=== PATIENT | male | born 1985 | race Caucasian/White ===

== ENCOUNTER 2016-05-01 13:11 | Emergency (ER) | payer OTHER ==
[~2016-05-01] VITALS: Ht 188 cm; Wt 100.0 kg
[~2016-05-01 13:11] MED LIST: ASPI325T PO; IBUP-232 PO
[2016-05-01 13:20] VITALS: BP 144/93; PULSE 94; RESP 16; TEMP 98.8; O2SAT 99
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
[2016-05-01] MEDS ORDERED: KETOROLAC TROMETHAMINE 60 MG/2 ML (IM) VIAL IM ONE (13:45)
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
[2016-05-01] MEDS ORDERED: IBUP800T23 PO (15:24)
[2016-05-01] MEDS ORDERED: ROBA500T PO (15:24)
== END 2016-05-01 15:34 | disposition home or self-care (01) ==
LOC: PHEFT 13:11
DX: S39.012A Strain of muscle, fascia and tendon of lower back, initial encounter (principal); M54.2 Cervicalgia; V53.5XXA Driver of pick-up truck or van injured in collision with car, pick-up truck or van in traffic accident, initial encounter; Y92.488 Other paved roadways as the place of occurrence of the external cause
CPT/HCPCS: 72050; 72110; 99284

== ENCOUNTER 2016-11-29 10:07 | Observation (INO) | payer OTHER ==
[~2016-11-29] VITALS: Ht 185.4 cm; Wt 107.0 kg
[~2016-11-29 10:07] MED LIST changes: -ASPI325T PO; -IBUP-232 PO; +IBUP800T23 PO; +ROBA500T PO
[2016-11-29 10:10] VITALS: BP 132/82; PULSE 97; RESP 16; TEMP 98.5; O2SAT 98
[2016-11-29] MEDS ORDERED: SODIUM CHLORIDE 0.9% FLUSH 10 ML FLUSH IVF PRN (10:15)
[2016-11-29 10:32] VITALS: BP 174/86; PULSE 91; RESP 19; O2SAT 96
[2016-11-29 10:36] LABS: AUTOMATED NEUTROPHIL # 5.4 TH/MM3 (1.8-7.7); BASOPHIL # 0.1 TH/MM3 (0-0.2); BASOPHIL % 0.7 % (0.0-2.0); EOSINOPHIL # 0.5 TH/MM3 (0-0.4); EOSINOPHIL % 6.1 % (0.0-4.0); HEMATOCRIT 44.4 % (39.0-51.0); HEMO FLAGS DIFF FINAL; LYMPH % 23.1 % (9.0-44.0); MEAN CELL VOLUME 92.7 FL (80.0-100.0); MEAN CORPUSCULAR HEMOGLOBIN 31.8 PG (27.0-34.0); MEAN CORPUSCULAR HGB CONC 34.3 % (32.0-36.0); MONO % 7.5 % (0.0-8.0); NEUT % 62.6 % (16.0-70.0); PLATELET COUNT 274 TH/MM3 (150-450); RED BLOOD COUNT 4.79 MIL/MM3 (4.50-5.90); RED CELL DISTRIBUTION WIDTH 13.1 % (11.6-17.2); WHITE BLOOD COUNT 8.6 TH/MM3 (4.0-11.0)
[2016-11-29 10:49] LABS: APTT (PATIENT) 24.7 SEC (24.3-30.1); INTERNATIONAL NORMALIZED RATIO 0.9 RATIO
[2016-11-29 10:59] LABS: ALKALINE PHOSPHATASE 64 U/L (45-117); ALT (GPT) 75 U/L (12-78); ANION GAP 5 MEQ/L (5-15); AST (GOT) 47 U/L (15-37); BICARBONATE 26.5 MEQ/L (21.0-32.0); BLOOD UREA NITROGEN 14 MG/DL (7-18); CHLORIDE 106 MEQ/L (98-107); CREATINE KINASE 924 U/L (39-308); GLOMERULAR FILTRATION RATE 60 ML/MIN (>89); SODIUM (NA) 137 MEQ/L (136-145); TOTAL BILIRUBIN ADULT 0.5 MG/DL (0.2-1.0)
[2016-11-29 11:00] LABS: POTASSIUM 4.2 MEQ/L (3.5-5.1)
[2016-11-29 11:14] LABS: CKMB 3.7 NG/ML (0.5-3.6)
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
[2016-11-29] MEDS ORDERED: SODIUM CHLOR 0.9% 1000 ML INJ 1,000 ML IV ONE (11:30)
[2016-11-29] MEDS ORDERED: ASPIRIN 81 MG CHEW TAB CHEW ONE (11:30)
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
--- NOTE | 2016-11-29 12:35 | RADRPT ---
EXAM DATE/TIME: 11/29/2016 11:33 [facility] COMPARISON: CHEST SINGLE AP, June 08, 2015, 16:20. INDICATIONS : Lt side chest pains into left shoulder. MEDICAL HISTORY : None. SURGICAL HISTORY : None. ENCOUNTER: Initial ACUITY: 3 days PAIN SCORE: 8/10 LOCATION: Left chest FINDINGS: A single view of the chest demonstrates the lungs to be symmetrically aerated without evidence of mas s, infiltrate or effusion. The cardiomediastinal contours are unremarkable. Osseous structures are intact. CONCLUSION: No acute disease. No significant change has occurred. Fernie Hatch MD on November 29, 2016 at 12:34 Board Certified Radiologist. This report was verified electronically.
[2016-11-29] MEDS ORDERED: ACETAMINOPHEN 500 MG CPLT PO PRN (12:45)
[2016-11-29] MEDS ORDERED: NITROGLYCERIN 0.4 MG SL 25 TABS/BTL SL PRN (12:45)
[2016-11-29] MEDS ORDERED: ONDANSETRON HCL 4 MG/2 ML VIAL IV PUSH PRN (12:45)
[2016-11-29 12:50] VITALS: O2SAT 98
[2016-11-29 13:09] VITALS: PULSE 72
[2016-11-29 13:32] VITALS: BP 171/78
[2016-11-29 14:12] LABS: CREATINE KINASE 837 U/L (39-308)
--- NOTE | 2016-11-29 14:16 | EKG ---
Date Performed: 11/29/2016 Time Performed: 10:21:28 PTAGE: 31 years EKG: Sinus rhythm NORMAL ECG Compared to prior tracing no significant change PREVIOUS TRACING : 06/08/2015 16.06 DOCTOR: Pee Woods Interpretating Date/Time 11/29/2016 14:12:09
[2016-11-29 14:25] LABS: CKMB 2.9 NG/ML (0.5-3.6)
--- NOTE | 2016-11-29 14:39 | HHI.HP ---
HPI Primary Care Physician Alfredo Rojas MD Chief Complaint Chest pain History of Present Illness 31-year-old male with history of asthma, hypertension, and chronic low back pain presents to the emergency room for further evaluation of chest pain. Onset Monday while watching television. Location left anterior chest. Characterized as a deep ache. Radiation to left arm. Stating left arm aches. Duration has been constant past 4 days. Associated symptoms include intermittent "cold sweats." Denies associated symptoms of nausea, vomiting, shortness of breath. Does not hurt to take a deep breath. No particular movements or position makes pain better or worse. Denies any injury, trauma, or recent fall. Endorses similar pain in the past. States I have been seen about a year ago for the same thing "and they can't find shit wrong." Reports mother encouraged him to come in emergency room for further evaluation due to family history of cardiovascular disease. Patient is unable to elaborate family history of cardiovascular disease, stating "my mom will know." Question if patient is agreeable for cardiac workup and possible stress testing patient states "I don't give a f what happens because you guys won't find anything anyway." Patient is argumentative during history and physical, especially when explaining 4 days of constant chest pain not cardiac related. Discussed ordering Toradol dose now, he refuses stating "I have studied medical issues, Toradol won't help and this is not costochondritis." Of note, term costochondritis was not used during history and physical exam. Assessment ended prematurely due to patient argumentative, agitated, and angry demeanor. Review of Systems General: No fever, chills, or recent illness change. HEENT: No AVINA CV: Continues to have chest pain as stated above. No palpitations. RESP: No SOB, cough, sputum production, or recent URI. History of asthma GI: No nausea, vomiting, bowel changes, or diarrhea. MS: Chronic low back pain and right shoulder pain. No change in ROM NEURO: No LOC, motor/sensory deficits, no extremity weakness, no numbness or tingling PSYCH: No anxiety, depression SKIN: No rashes, no concerning lesions Past Family Social History Allergies: Coded Allergies: penicillin G (Unverified Allergy, Unknown, 11/29/16) pt's states possible reaction due to mother being allergic to pen Past Medical History Chronic low back pain, hypertension (not taking any medications), asthma, depression, anxiety, right shoulder before meals tear Past Surgical History Right inguinal hernia repair, right knee surgery, appendectomy, tonsillectomy Reported Medications Reported Meds & Active Scripts Active Ginkgo biloba daily Active Ordered Medications Current Medications Medications (Trade) Dose Ordered Sig/Ita Route Start Time Stop Time Status Last Admin (NS Flush) 2 ml UNSCH PRN IVF 11/29/16 10:15 (NS Flush) 2 ml BID IV FLUSH 11/29/16 21:00 (Tylenol) 500 mg Q4H PRN PO 11/29/16 12:45 (Zofran Inj) 4 mg Q6H PRN IV PUSH 11/29/16 12:45 (Nitrostat Sl) 0.4 mg Q5M PRN SL 11/29/16 12:45 (Aspirin) 325 mg DAILY PO 11/30/16 09:00 Social History Known hypertension (cannot verify if he has ever been ordered blood pressure meds-"stating I probably have been"). No known diabetes or hyperlipidemia. Current smoker, smokes one half pack daily. Endorses an active lifestyle, exercises often. . 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 Past cardiac testing None Physical Exam Vital Signs Vital Signs Date Time Temp Pulse Resp B/P (MAP) Pulse Ox O2 Delivery O2 Flow Rate FiO2 11/29/16 13:32 78 17 171/78 (109) 98 11/29/16 12:50 98 21 11/29/16 10:32 87 19 96 Room Air 11/29/16 10:32 91 19 174/86 (115) 96 Room Air 11/29/16 10:32 96 Room Air 11/29/16 10:32 91 19 174/86 (115) 96 Room Air 11/29/16 10:10 98.5 97 16 132/82 (99) 98 Physical Exam GENERAL: Alert WN, WD, NAD, agitated, hostile male HEAD: NC, AT CV: RRR, without murmur, rub, gallop, no JVD, S1-S2 no S3-S4. Chest wall nontender with palpation. RESP: Clear lungs throughout bilateral, no crackles, wheeze, rhonchi, symmetrical chest rise, nonlabored, able to speak in full sentences MS: Normal tone 4 extremities, no obvious deformities, full range of motion NEURO: CN II through CN XII grossly intact PSYCH: A+O 3, angry, agitated, and argumentative, appropriate speech, mood, affect, insight and judgment difficult to discern due to angry behavior SKIN: Normal turgor, normal texture, multiple tattoos Laboratory Laboratory Tests Test 11/29/16 10:27 11/29/16 13:30 White Blood Count 8.6 Red Blood Count 4.79 Hemoglobin 15.2 Hematocrit 44.4 Mean Corpuscular Volume 92.7 Mean Corpuscular Hemoglobin 31.8 Mean Corpuscular Hemoglobin Concent 34.3 Red Cell Distribution Width 13.1 Platelet Count 274 Mean Platelet Volume 7.0 Neutrophils (%) (Auto) 62.6 Lymphocytes (%) (Auto) 23.1 Monocytes (%) (Auto) 7.5 Eosinophils (%) (Auto) 6.1 Basophils (%) (Auto) 0.7 Neutrophils # (Auto) 5.4 Lymphocytes # (Auto) 2.0 Monocytes # (Auto) 0.6 Eosinophils # (Auto) 0.5 Basophils # (Auto) 0.1 CBC Comment DIFF FINAL Differential Comment Prothrombin Time 10.0 Prothromb Time International Ratio 0.9 Activated Partial Thromboplast Time 24.7 Blood Urea Nitrogen 14 Creatinine 1.39 Random Glucose 105 Total Protein 7.1 Albumin 3.8 Calcium Level 8.6 Magnesium Level 2.0 Alkaline Phosphatase 64 Aspartate Amino Transf (AST/SGOT) 47 Alanine Aminotransferase (ALT/SGPT) 75 Total Bilirubin 0.5 Sodium Level 137 Potassium Level 4.2 Chloride Level 106 Carbon Dioxide Level 26.5 Anion Gap 5 Estimat Glomerular Filtration Rate 60 Total Creatine Kinase 924 837 Creatine Kinase MB 3.7 2.9 Creatine Kinase MB % 0.4 0.3 Troponin I LESS THAN 0.02 LESS THAN 0.02 Lipase 243 Result Diagram: 11/29/16 1027 11/29/16 1027 Imaging Last Impressions Chest X-Ray 11/29/16 0000 Signed Impressions: Service Date/Time: Tuesday, November 29, 2016 11:33 - CONCLUSION: No acute disease. No significant change has occurred. Fernie Hatch MD Course EKG Normal sinus rhythm, normal axis, no ST or T-segment changes Caprini VTE Risk Assessment Caprini VTE Risk Assessment: No/Low Risk (score <= 1) Caprini Risk Assessment Model Point Value = 1 Point Value = 2 Point Value = 3 Point Value = 5 Age 41-60 Minor surgery BMI > 25 kg/m2 Swollen legs Varicose veins or History of unexplained or recurrent spontaneous Oral contraceptives or hormone replacement Sepsis (< 1 month) Serious lung disease, including pneumonia (< 1 month) Abnormal pulmonary function Acute myocardial infarction Congestive heart failure (< 1 month) History of inflammatory bowel disease Medical patient at bed rest Age 61-74 Arthroscopic surgery Major open surgery (> 45 min) Laparoscopic surgery (> 45 min) Malignancy Confined to bed (> 72 hours) Immobilizing plaster cast Central venous access Age >= 75 History of VTE Family history of VTE Factor V Leiden Prothrombin [id number] Lupus anticoagulant Anticardiolipin antibodies Elevated serum homocysteine Heparin-induced thrombocytopenia Other congenital or acquired thrombophilia Stroke (< 1 month) Elective arthroplasty Hip, pelvis, or leg fracture Acute spinal cord injury (< 1 month) Prophylaxis Regimen Total Risk Factor Score Risk Level Prophylaxis Regimen 0-1 Low Early ambulation 2 Moderate Order ONE of the following: *Sequential Compression Device (SCD) *Heparin 5000 units SQ BID 3-4 Higher Order ONE of the following medications: *Heparin 5000 units SQ TID *Enoxaparin/Lovenox 40 mg SQ daily (WT < 150 kg, CrCl > 30 mL/min) *Enoxaparin/Lovenox 30 mg SQ daily (WT < 150 kg, CrCl > 10-29 mL/min) *Enoxaparin/Lovenox 30 mg SQ BID (WT < 150 kg, CrCl > 30 mL/min) AND/OR *Sequential Compression Device (SCD) 5 or more Highest Order ONE of the following medications: *Heparin 5000 units SQ TID (Preferred with Epidurals) *Enoxaparin/Lovenox 40 mg SQ daily (WT < 150 kg, CrCl > 30 mL/min) *Enoxaparin/Lovenox 30 mg SQ daily (WT < 150 kg, CrCl > 10-29 mL/min) *Enoxaparin/Lovenox 30 mg SQ BID (WT < 150 kg, CrCl > 30 mL/min) AND *Sequential Compression Device (SCD) Assessment and Plan Assessment and Plan #1 Chest wall pain-admitted to chest pain center Will rule out with 3 sets of EKGs, cardiac enzymes, and monitor on telemetry. Will be seen and evaluated by Dr. Sumi Clement. Discussed chest pain most likely to be musculoskeletal in nature and not cardiac related. Offered Toradol IV, patient refuses " stating Toradol will not work for me." Discussed pharmacokinetics and benefits of NSAIDs for musculoskeletal in length, continues to refuse. At this time patient agrees to stay and be seen by thread spooler. Explained constant 4 days of chest pain, the decision to have further stress testing would be only for his and his mother reassurance, not due to current symptoms. Patient again states "you won't find anything on the stress test anyway." #2 Hypertension-continue to monitor, discussed importance of tight blood pressure control, mild renal insufficiency noted on lab work, importance of follow-up with PCP and if ever prescribed blood pressure medications to take a directed. #3 Tobacco use-encouraged him to quit smoking. 1700 RN notified patient leaving AMA. Mayela Lundberg Nov 29, 2016 14:39
[2016-11-29 14:46] VITALS: BP 133/67; PULSE 75; RESP 21; TEMP 98.1; O2SAT 98
--- NOTE | 2016-11-29 18:26 | EKG ---
Date Performed: 11/29/2016 Time Performed: 13:32:04 PTAGE: 31 years EKG: Sinus rhythm NORMAL ECG Since PREVIOUS TRACING , no significant change noted PREVIOUS TRACIN11/29/2016 10.21 DOCTOR: Sumi Clement Interpretating Date/Time 11/29/2016 18:25:42
[2016-11-29] MEDS ORDERED: SODIUM CHLORIDE 0.9% FLUSH 10 ML FLUSH IV FLUSH SCH (21:00)
[2016-11-30] MEDS ORDERED: ASPIRIN 325 MG TAB PO SCH (09:00)
== END 2016-11-29 20:16 | disposition home or self-care (01) ==
LOC: NEPD 10:07 → NEDA 12:12 → NEPFCDU 13:43
PROVIDERS: ADMIT Internal Medicine Interventional Cardiology; ATTEND Internal Medicine Interventional Cardiology
DX: R07.89 Other chest pain (principal); I10 Essential (primary) hypertension; J45.909 Unspecified asthma, uncomplicated; M54.5 Low back pain; G89.29 Other chronic pain; N28.9 Disorder of kidney and ureter, unspecified; G43.909 Migraine, unspecified, not intractable, without status migrainosus; F17.210 Nicotine dependence, cigarettes, uncomplicated; Z82.49 Family history of ischemic heart disease and other diseases of the circulatory system
CPT/HCPCS: 71010; 80053; 82550; 82552; 83690; 83735; 84484; 85025; 85610; 85730; 93005; 96360; 99285; G0378; J7030